=== PATIENT | female | born 1995 | race Caucasian/White ===

== ENCOUNTER 2017-10-17 08:13 | Inpatient (IN) | payer OTHER ==
[~2017-10-17 08:13] MED LIST: Buffered Lidocaine 0.9% SYRIN* 5 ML/SYR SYRINGE INTRADERM ONE; Famotidine IV* 10 MG/ML 2 ML (20 mg) IV ONE
--- OUTSIDE RECORDS SUMMARY | 2017-10-17 08:19 | XMS REPORT ---
:1995 External Reference #:[id number] Author Organization [facility] Address [address] [place] [address] Phone [phone] Care Team Providers Name Role Phone Ji Oliveira Primary Care Physician Unavailable Payers Type Date Identification Numbers Payment Provider Subscriber Commercial Policy Number: [id number] [employer] Ppo/Pos/Epo/Nap Joseline Izaguirre Group Number: [id number] [address] PayID: [id number] [place] [address] Problems Date Description Provider Status Onset: Urticaria Active Onset: 08/14/2015 Corneal pannus Monserrat Martin O.D. 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 Family History Date Family Member(s) Problem(s) Comments Father No Current Problems Mother No Current Problems Social History Type Date Description Comments Marital Status Single Occupation Student Work Status Full-Time Employment ETOH Use Occasionally consumes alcohol Smoking Patient has never smoked Recreational Drug Use Denies Drug Use Daily Caffeine Consumes on average 1 cup of regular coffee per day Allergies, Adverse Reactions, Alerts Date Description Reaction Status Severity Comments 08/05/2015 Ceclor Nausea and Vomiting, Urticaria, joint active swelling Medications Medication Date Status Form Strength Qnty SIG Indications Ordering Provider Vitamin B12 00/00/000 Active Tablets ER 1000mcg Unknown 0 Multiple Vitamin Active Tablets Unknown 0 No Active Hx Unknown Medications 6 - 8 Vitamin D Hx Capsules 2000Unit Unknown 0 - 8 Results Description No Information Procedures Date CPT Code Description Status 09/13/2017 77561 Determination Of Refractive State Completed 09/13/2017 54998 Est Patient Comprehensive Exam Completed 09/05/2016 35089 Determination Of Refractive State Completed 09/05/2016 02271 Est Patient Comprehensive Exam Completed 08/14/2015 14598 Determination Of Refractive State Completed 08/14/2015 16554 Est Patient Comprehensive Exam Completed 08/04/2014 66131 Determination Of Refractive State Completed 08/04/2014 86934 Est Patient Comprehensive Exam Completed 08/04/2014 101 Level 1 SCL Fit/Refit Completed 06/19/2013 50321 Determination Of Refractive State Completed 06/19/2013 22442 Est Patient Comprehensive Exam Completed 06/19/2013 101 Level 1 SCL Fit/Refit Completed 06/18/2012 01941 Determination Of Refractive State Completed 06/18/2012 94621 Est Patient Comprehensive Exam Completed 06/18/2012 201 Refit - No Change In Fit Completed 06/13/2011 201 Refit - No Change In Fit Completed 06/13/2011 88921 Est Patient Comprehensive Exam Completed 06/13/2011 26572 Determination Of Refractive State Completed 06/11/2010 16494 Determination Of Refractive State Completed 06/11/2010 07565 Est Patient Comprehensive Exam Completed 06/11/2010 201 Refit - No Change In Fit Completed 05/28/2009 74148 Determination Of Refractive State Completed 05/28/2009 88854 Est Patient Comprehensive Exam Completed 05/28/2009 201 Refit - No Change In Fit Completed 06/12/2008 56842 Determination Of Refractive State Completed 06/12/2008 10364 Est Patient Comprehensive Exam Completed 06/12/2008 201 Refit - No Change In Fit Completed 05/30/2007 43539 Determination Of Refractive State Completed 05/30/2007 73840 Est Patient Comprehensive Exam Completed 05/30/2007 101 Level 1 SCL Fit/Refit Completed 05/23/2005 98773 Determination Of Refractive State Completed 05/23/2005 77119 Est Patient Comprehensive Exam Completed Plan of Care 09/27/2017 - Monserrat Martin O.D.[id number] Pannus (corneal), [id number] Other congenital lens malformationsFollow up:1 Year Follow Up cee/ cl's fit
[2017-10-17] MEDS ORDERED: Midazolam* 1 MG/ML 5 ML VIAL (5 MG) ONE (08:21)
[2017-10-17] MEDS ORDERED: fentaNYL* 50 MCG/ML 2 ML VIAL (100 MCG VIAL) ONE ×3 (08:21→10:28)
[2017-10-17] MEDS ORDERED: Rocuronium* 10 MG/ML VIAL ONE (08:21)
[2017-10-17] MEDS ORDERED: Famotidine IV* 10 MG/ML 2 ML (20 mg) ONE (08:44)
[2017-10-17] MEDS ORDERED: ceFAZolin 1 GM in Dextrose (*) 1 GM/50 ML BAG IVPB ONE (08:45)
[2017-10-17] MEDS ORDERED: Clindamycin 900 MG IVPREMIX(* 900 MG/50 ML SDV IV ONE (08:45)
[2017-10-17] MEDS ORDERED: ceFAZolin 2 GM PREMIX (*) 2 GM/50 ML BAG IVPB ONE (08:45)
[2017-10-17] MEDS ORDERED: Dexamethasone IV* 4 MG/ML 1 ML (4 MG) ONE (08:57)
[2017-10-17] MEDS ORDERED: Propofol* 10 MG/ML 20 ML BTL IV PUSH ONE (08:57)
[2017-10-17] MEDS ORDERED: DiMENhydriNATE IV* 50 MG/ML VIAL ONE (08:57)
[2017-10-17] MEDS ORDERED: Succinylcholine* 20 MG/ML 10 ML VIAL ONE (08:57)
[2017-10-17] MEDS ORDERED: Ketorolac INJ* 30 MG/ML 1 ML VIAL ONE (08:57)
[2017-10-17] MEDS ORDERED: Heparin VIAL(*) 5000 UNITS/ML VIAL (FIVE THOUSAND) ONE (09:06)
[2017-10-17] MEDS ORDERED: Bupivacaine 0.25% SDV* 30 ML ONE (09:31)
[2017-10-17] MEDS ORDERED: Scopolamine 1.5 mg* PATCH ONE (10:27)
[2017-10-17] MEDS ORDERED: Acetaminophen IV 1GM/100ML * 1,000 MG/100 ML VIAL IVPB ONE (11:02)
[2017-10-17] MEDS ORDERED: Ondansetron SYRINGE* 4 MG/2 ML SYRINGE (from 40mg/20ml vial) IV PRN (11:02)
[2017-10-17] MEDS ORDERED: Naloxone* 0.4 MG/ML 1 ML VIAL IV PRN (11:02)
[2017-10-17] MEDS ORDERED: Glycopyrrolate IV* 0.2 MG/ML 1 ML VIAL ONE (11:05)
[2017-10-17] MEDS ORDERED: Acetaminophen ADULT LIQ* 650 MG/20.3 ML UDC PO PRN (11:06)
[2017-10-17] MEDS ORDERED: Ondansetron INJ* 2 MG/ML VIAL IV PRN (11:06)
[2017-10-17] MEDS ORDERED: HYDROcodone/ACET. 7.5/325 LIQ* 15 ML UDC PO PRN (11:06)
[2017-10-17] MEDS ORDERED: diPHENhydraMINE IV* 50 MG/ML 1 ml VIAL (BENADRYL) SLOW PUSH PRN (11:06)
[2017-10-17] MEDS ORDERED: HYDROmorphone INJ* 2 MG/ML CARPUJECT SYRINGE IV PRN (11:06)
--- NOTE | 2017-10-17 11:14 | OP ---
Operative Report - Blank - Operative Report Date of Operation: 10/17/17 Note: Preop Dx: Morbid Obesity; Obstructive Sleep Apnea Postop Dx: Same Procedure: Laparoscopic Sleeve Gastrectomy Surgeon: Jose Assist: Alex MENSAH; Camilo WOOD Anesthesia: GET; Klufas IV Fluids: 1500mL RL EBL: <50mL Drains: None Specimen: Portion of Stomach Complications: None Findings: Dictated
[2017-10-17] MEDS ORDERED: Acetaminophen IV 1GM/100ML * 100 ML ONE (11:30)
[2017-10-17] MEDS ORDERED: HYDROmorphone INJ* 2 MG/ML CARPUJECT SYRINGE ONE (11:30)
[2017-10-17] MEDS: HYDROmorphone INJ* 1 MG/ML CARPUJECT SYRINGE IV PRN ×2 (11:45→12:01)
[2017-10-17] MEDS: HYDROmorphone INJ* 2 MG/ML CARPUJECT SYRINGE IV PRN ×3 (14:24→21:29)
[2017-10-17] MEDS: Heparin VIAL(*) 5000 UNITS/ML VIAL (FIVE THOUSAND) SUBCUT SCH ×2 (14:25→21:32)
[2017-10-17] MEDS: Ketorolac INJ* 30 MG/ML 1 ML VIAL IV PRN ×2 (17:45→23:31)
[2017-10-17] MEDS: Ondansetron 40 MG VIAL* 2 MG/ML 20 ML VIAL IV PRN ×2 (17:45→21:24)
[2017-10-17] MEDS: Famotidine IV* 10 MG/ML 2 ML (20 mg) IV SLOW PU SCH (21:26)
[2017-10-18] MEDS: Ondansetron 40 MG VIAL* 2 MG/ML 20 ML VIAL IV PRN ×3 (03:51→21:02)
[2017-10-18] MEDS: HYDROmorphone INJ* 2 MG/ML CARPUJECT SYRINGE IV PRN ×3 (03:53→21:02)
[2017-10-18] MEDS: Ketorolac INJ* 30 MG/ML 1 ML VIAL IV PRN ×3 (05:29→17:33)
[2017-10-18] MEDS: Heparin VIAL(*) 5000 UNITS/ML VIAL (FIVE THOUSAND) SUBCUT SCH ×3 (05:31→21:49)
[2017-10-18] MEDS: Famotidine IV* 10 MG/ML 2 ML (20 mg) IV SLOW PU SCH ×2 (07:54→21:02)
[2017-10-18] MEDS: D5W 1/2 NS KCl 20 Meq 1000 ML* 1,000 ML IV SCH ×2 (10:56→18:46)
[2017-10-18] MEDS ORDERED: Ondansetron ODT TAB* 4 MG SL PRN (11:09)
--- NOTE | 2017-10-18 11:09 | PN ---
Progress Note - Progress Note Date of Service: 10/18/17 Note: S: POD #1. (seen earlier this a.m. ~ 1000). C/o some nausea; no vomiting or regurgitation. Just started tiana clears. Up and ambulating. O: Vital Signs - 8 hr 10/18/17 10/18/17 10/18/17 05:29 07:40 08:00 Temperature 98.2 F Pulse Rate 69 Respiratory 18 15 18 Rate Blood Pressure 108/60 (mmHg) O2 Sat by Pulse 99 99 Oximetry 10/18/17 10/18/17 10/18/17 08:29 10:54 13:10 Temperature Pulse Rate Respiratory 18 16 18 Rate Blood Pressure (mmHg) O2 Sat by Pulse Oximetry Intake and Output Last 24 Hours 10/16/17 10/17/17 10/18/17 10/19/17 06:59 06:59 06:59 06:59 Intake Total 1950 980 Output Total 2515 800 Balance -565 180 Weight 221 lb Intake: IV Fluids 1950 980 3GMS ANCEF 100 900MG CLINDAMYCIN 50 LR 1800 980 Oral 0 0 Output: Urine 2515 800 Other: Estimated Void Medium # Voids 1 Gen: NAD Heart: reg Lungs: clear Abd: +BS; lap sites clean and dry (dressings intact); soft; incisional tenderness only A: s/p lap sleeve gastrectomy, doing well P: poss d/c later today pending elmo of tiana clears; will recheck; discussed w/ Dr. Garcia
--- NOTE | 2017-10-18 11:14 | OP ---
CC: MARJAN Hines; aLrissa Bryan NP, [facility] * DATE OF OPERATION: 10/17/17 - ROOM #351 DATE OF : 89 SURGEON: Filipe Garcia MD OPERATOR AUTOMATED PROCESS: TORY Dominguez ANESTHESIOLOGIST: Saskia Wild MD ANESTHESIA: General endotracheal. PRE-OP DIAGNOSIS: Morbid obesity. POST-OP DIAGNOSIS: Morbid obesity. OPERATIVE PROCEDURE: Laparoscopic sleeve gastrectomy. ESTIMATED BLOOD LOSS: Minimal. IV FLUIDS: Crystalloid. SPECIMEN: Portion of the stomach. DRAINS: None. COMPLICATIONS: None. COUNTS: The instrument, needle, and sponge counts are correct. DESCRIPTION OF PROCEDURE: The patient was brought to the operating room and placed on the table supine. Sequential compression devices were placed on both lower extremities and general anesthesia was administered. The abdomen was prepped and draped in the usual sterile fashion. She was administered appropriate intravenous antibiotics and time-out was performed. Local anesthetic was infiltrated into the skin and soft tissue prior to making each incision. Entry into the abdomen was through a left upper quadrant incision accommodating a 5-mm optical trocar. After accessing the peritoneal cavity, carbon dioxide was insufflated to a pressure of 15 mmHg. Under direct visualization, 12- mm bladeless trocars were placed in the supraumbilical, midline and right upper quadrant. A 5-mm bladeless trocar was placed in the left upper quadrant laterally and a Karla liver retractor was placed percutaneously in the subxiphoid position and used to elevate the left lobe of the liver. The gastric anatomy appeared normal. The pylorus was identified. 6 cm proximal to this on the greater curvature, the stomach was skeletonized with LigaSure. The dissection proceeded along the short gastrics up to the gastroesophageal junction dividing the posterior short gastrics in the area of the fundus and there were noted to be no adhesions in the lesser sac. The sleeve gastrectomy was performed over a 40-Thai bougie using an EndoGIA stapler with purple reinforced cartridges. After completing the resection, hemostasis was assured. The specimen was retrieved through the right upper quadrant wound. Ports were removed and carbon dioxide was released and the Karla liver retractor was removed. The wounds were closed with 4-0 Monocryl in a subcuticular fashion and Steri-Strips were applied. [id number]/[facility] #: [id number] TRACY
[2017-10-19] MEDS: Ketorolac INJ* 30 MG/ML 1 ML VIAL IV PRN ×2 (01:21→08:24)
[2017-10-19] MEDS: D5W 1/2 NS KCl 20 Meq 1000 ML* 1,000 ML IV SCH (02:45)
[2017-10-19] MEDS: Heparin VIAL(*) 5000 UNITS/ML VIAL (FIVE THOUSAND) SUBCUT SCH (05:58)
[2017-10-19 07:35] VITALS: BP 112/66
[2017-10-19] MEDS: Famotidine IV* 10 MG/ML 2 ML (20 mg) IV SLOW PU SCH (08:20)
--- NOTE | 2017-10-19 09:12 | PN ---
Progress Note - Progress Note Date of Service: 10/19/17 Note: S: POD #2. Better this a.m. Julissa clear liqs. Sl nausea this a.m. No vomiting. Has been using Dilaudid and Toradol for pain control 2/2 to "bad taste" of the hydrocodone liquid. She is passing flatus. O: Vital Signs - 8 hr 10/19/17 10/19/17 10/19/17 01:12 04:13 07:20 Temperature 97.5 F 98.2 F 98.5 F Pulse Rate 55 59 63 Respiratory 21 22 16 Rate Blood Pressure 116/52 106/58 112/66 (mmHg) O2 Sat by Pulse 97 94 99 Oximetry 10/19/17 08:00 Temperature Pulse Rate Respiratory 16 Rate Blood Pressure (mmHg) O2 Sat by Pulse 99 Oximetry Intake and Output Last 24 Hours 10/17/17 10/18/17 10/19/17 10/20/17 06:59 06:59 06:59 06:59 Intake Total 1950 3905 Output Total 2515 2400 0 Balance -565 1505 0 Weight 221 lb Intake: IV Fluids 1950 2945 3GMS ANCEF 100 900MG CLINDAMYCIN 50 LR 1800 980 d5 1/2 20kcl 1965 Oral 0 960 Output: Urine 2515 2400 0 Other: Estimated Void Medium # Bowel Movements 0 # Voids 1 Gen: appears comfortable Heart: reg Lungs: clear Abd: +BS; lap sites clean and dry; dsgs removed; soft; incisional tenderness only A/P: s/p lap sleeve gastrectomy, doing well; ready for d/c; instructions reviewed
--- NOTE | 2017-10-19 10:50 | DS ---
CC: Larissa Bryan NP, [facility] * DATE OF ADMISSION: 10/17/2017. DATE OF DISCHARGE: 10/19/2017. ATTENDING SURGEON: Dr. Filipe Garcia * (TORY Dominguez dictating). HOSPITAL COURSE: Please refer to admission history and physical and operative note for details. The patient was taken to the operating room on 10/17/2017 and underwent laparoscopic sleeve gastrectomy with Dr. Garcia. Her postoperative course has been uneventful. She has gradually progressed in terms of pain control and or intake of bariatric clear liquids and is doing well as of the morning of discharge. PHYSICAL EXAMINATION: General: No acute distress. Vital Signs: Temperature 98.5, blood pressure 112/66, pulse 63, respirations 16, room air saturation 99 percent. Heart: Regular rate and rhythm. Lungs: Clear to auscultation. Abdomen: Laparoscopic port sites are clean and dry with no active bleeding or drainage. Steri-Strips are in place. The abdomen is soft with tenderness limited to the incision areas. IMPRESSION: Status post laparoscopic sleeve gastrectomy, doing well. PLAN: Home today. Instructions were reviewed regarding wound care activity and diet. She will follow bariatric guideline. She has an appointment already scheduled for the [facility]. TORY DOMINGUEZ [id number]/[facility] #: [id number] MTDD
== END 2017-10-19 11:00 | disposition home or self-care (01) | DRG 621 ==
LOC: AA 08:13 → SSU 13:47
PROVIDERS: ADMIT Surgery; ATTEND Surgery
PROC: 0DB64Z3 Excision of Stomach, Percutaneous Endoscopic Approach, Vertical (ICD-10-PCS; principal; 2017-10-17 09:45)
DX: E66.01 Morbid (severe) obesity due to excess calories (principal); G47.33 Obstructive sleep apnea (adult) (pediatric); Z68.36 Body mass index [BMI] 36.0-36.9, adult; Z83.49 Family history of other endocrine, nutritional and metabolic diseases; Z72.89 Other problems related to lifestyle; R11.0 Nausea
CPT/HCPCS: 81025; 88307; A9270-GY; J0330; J0690; J1100; J1170; J1240; J1644; J1885; J2250; J2405; J2704; J3010

== ENCOUNTER 2018-11-25 15:23 | Emergency (ER) | payer OTHER ==
[2018-11-25 16:10] VITALS: BP 134/73
--- NOTE | 2018-11-25 16:16 | UC ---
Lower Extremity/Ankle HPI - HPI Summary HPI Summary: 23 y/o female presents to the urgent care c/o let ankle pain, bruise and mild swelling s/p twisting her left ankle while dancing on 11/22/2018. Pt reports she used to do gymnastics and has an injury to her left ankle where she had full reconstruction of her left ankle in 2009 w/ an orthopedic surgeon at [facility]. Pt has been applying ice and took Ibuprofen 500mg PO of Monday. But symptosm have not improved and she is limping when she is walking. Pain is sharp w/ certain movement 08/15. Pt denies numbness or tingling sensation over the left extremity, calf pain, SOB, chest pain,abdominal pain,N/V/d. - History of Current Complaint Chief Complaint: UCLowerExtremity Stated Complaint: LEFT ANKLE INJURY Time Seen by Provider: 11/25/18 16:15 Hx Obtained From: Patient Hx Last Menstrual Period: IUD in place ?: No Onset/Duration: Sudden Onset, Lasting Days - 4 days ago twisted hie left ankle while dancing, Still Present Severity Initially: Moderate Severity Currently: Moderate Pain Intensity: 4 Pain Scale Used: 0-10 Numeric Aggravating Factor(s): Standing, Ambulation Alleviating Factor(s): Rest, Elevation, OTC Meds - Ibuprofen PO only Monday Able to Bear Weight: Yes - Risk Factors Gout Risk Factors: Negative DVT Risk Factors: Negative Septic Arthritis Risk Factor: Negative - Allergies/Home Medications Allergies/Adverse Reactions: Allergies Allergy/AdvReac Type Severity Reaction Status Date / Time cefaclor Allergy Severe swelling Verified 11/25/18 16:11 and hive PMH/Surg Hx/FS Hx/Imm Hx Previously Healthy: Yes - Pt denies PMHX - Surgical History Surgical History: Yes Surgery Procedure, Year, and Place: LEFT ANKLE RECONSTRUCTION 2009. WISDOM TEETH - 2013. gastric sleeve - Family History Known Family History: Positive: None - Pt denies FMHX - Social History Occupation: Employed Full-time Lives: With Family Alcohol Use: Occasionally Substance Use Type: None Substance Use Comment - Amount & Last Used: rare Smoking Status (MU): Never Smoked Tobacco - Immunization History Most Recent Influenza Vaccination: 2017 Most Recent Pneumonia Vaccination: none Review of Systems All Other Systems Reviewed And Are Negative: Yes Constitutional: Positive: Negative Skin: Positive: Bruising - and swelling in the lateral side of left ankle Eyes: Positive: Negative ENT: Positive: Negative Respiratory: Positive: Negative Cardiovascular: Positive: Negative Gastrointestinal: Positive: Negative Genitourinary: Positive: Negative Motor: Positive: Negative Neurovascular: Positive: Negative Musculoskeletal: Positive: Decreased ROM - left ankle, Other: - left ankle pain s/p twisting her ankle while dancing Neurological: Positive: Negative Psychological: Positive: Negative Is Patient Immunocompromised?: No Physical Exam - Summary Physical Exam Summary: Vital Signs Reviewed: Yes General: well developed, well nourished female, sitting in the examining table w /o any apparent distress Eyes: Positive: Conjunctiva Clear - PERRLA, EOMI, ENT: Positive: Normal ENT inspection, Hearing grossly normal, Pharynx normal, TMs normal Neck: Positive: Supple, Nontender, No Lymphadenopathy Respiratory: Positive: Chest non-tender, Lungs clear, Normal breath sounds, No respiratory distress Cardiovascular: Positive: RRR, No Murmur, Pulses Normal, Brisk Capillary Refill Abdomen Description: Positive: Nontender, No Organomegaly, Soft. Negative: CVA Tenderness (R), CVA Tenderness (L) Bowel Sounds: Positive: Present Musculoskeletal: - Ankle: Pt is able to bear weight and ambulate w/ limping. The R ankle is without obvious asymmetry or deformity when compared to the L ankle. Decreased ROM due to pain. Moderate swelling at the lateral malleolus, with tenderness to palpation. No ecchymosis, mild bruising observed on the lateral malleolus w/ a old scar form previous surgery. No tenderness to palpation over the medial malleolus , no swelling observed. Talar tilt test is negative for ligament laxity to valgus or varus stress. Negative anterior drawer. Peroneal nerve is intact with strong eversion and plantar flexion. Positive sensation over the Rt foot and Rt ankle, positive pulses, capillary refill intact Neurological Exam: Normal Psychological Exam: Normal Skin: warm and dry Triage Information Reviewed: Yes Vital Signs: Initial Vital Signs Temp 98.9 F 11/25/18 16:07 Pulse 105 11/25/18 16:07 Resp 15 11/25/18 16:07 BP 134/73 11/25/18 16:07 Pulse Ox 99 11/25/18 16:07 Lower Extremity Course/Dx - Course Course Of Treatment: 23 y/o female presents to the urgent care c/o let ankle pain, bruise and mild swelling s/p twisting her left ankle while dancing on 11/22/2018. Pt reports she used to do gymnastics and has an injury to her left ankle where she had full reconstruction of her left ankle in 2009 w/ an orthopedic surgeon at [place]. Pt has been applying ice and took Ibuprofen 500mg PO of Monday. But symptoms have not improved and she is limping when she is walking. Pain is sharp w/ certain movement 08/15. Pt denies numbness or tingling sensation over the left extremity, calf pain, SOB, chest pain,abdominal pain,N/V/d. Hx obtained. Rt ankle X-ray ordered, IMPRESSION: Soft tissue swelling laterally. Likely old injury of the distal fibula as per radiologist. Pt most likely with a RT ankle Sprain. Pt immobilized with KONG bandage and advised to use the gel ankle splint and the crutches she has at home to keep her ankle immobilized and avoid weight bearing, Also advised to continue taking Ibuprofen PO to decrease swelling and pain. Pt advised RICE, take Ibuprofen PO for pain and to f /u with her orthopedic or DR Alston or sports Medicine in 1 week if not improvement of symptoms for further treatment. Parents and Pt understood and agreed and left the clinic ambulating. - Differential Dx/Diagnosis Differential Diagnosis/HQI/PQRI: Contusion, Dislocation, Fracture (Closed), Sprain, Strain, Tendonitis Provider Diagnosis: Left ankle injury, Left ankle sprain Discharge - Sign-Out/Discharge Documenting (check all that apply): Patient Departure - D/C home All imaging exams completed and their final reports reviewed: Yes - Discharge Plan Condition: Stable Disposition: HOME Patient Education Materials: Ankle Sprain (ED) Referrals: LONG Prieto [Primary Care Provider] - 3 Days Alberto Alston MD [Medical Doctor] - 1 Week [facility] [Provider Group] - 1 Week Additional Instructions: 1-Please continue taking Ibuprofen PO 600mg q6-8hrs after meals as directed to alleviate pain and swelling. 2-Please apply ice, keep your ankle immobilized with the splint you have at home. Avoid weight bearing using the crutches you have at home. Elevate your ankle to decrease swelling 3- Please f/u with your Orthopedic or Orthopedic Dr Alston or from Sports Medicine if not improvement of symptoms for further evaluation and treatment. - Billing Disposition and Condition Condition: STABLE Disposition: Home
== END 2018-11-25 17:31 | disposition home or self-care (01) ==
LOC: UCCORT 15:23
DX: S93.402A Sprain of unspecified ligament of left ankle, initial encounter (principal); X50.1XXA Overexertion from prolonged static or awkward postures, initial encounter; Y93.41 Activity, dancing; Y92.9 Unspecified place or not applicable; Z87.39 Personal history of other diseases of the musculoskeletal system and connective tissue; Z98.890 Other specified postprocedural states
CPT/HCPCS: 84702; 99211; G0463